=== PATIENT | male | born 1950 | race Caucasian/White ===

== ENCOUNTER 2023-10-29 19:39 | Emergency (ER) | payer SELFPAY ==
[~2023-10-29] VITALS: Ht 172.7 cm; Wt 73.0 kg
== END 2023-10-29 20:58 | disposition home or self-care (01) ==
LOC: ER 19:39 → EDBD 19:39 → ER 20:58
DX: R41.82 Altered mental status, unspecified (principal); Z98.890 Other specified postprocedural states; Z59.00 Homelessness unspecified
CPT/HCPCS: 99283; Z7610